=== PATIENT | male | born 1970 | race Caucasian/White ===

== ENCOUNTER → 2017-04-17 | Outpatient (CLI) | payer BC, OTHER ==
--- NOTE | 2017-04-17 11:22 | XR ---
EXAMINATION TYPE: XR hand complete RT DATE OF EXAM: 04/17/2017 COMPARISON: NONE HISTORY: Pain and swelling base of third digit TECHNIQUE: Three-view right hand FINDINGS: Some minimal dorsal soft tissue swelling is at the metacarpal phalangeal joint space.. No a cute fractures are evident. Joint spaces are preserved. IMPRESSION: 1. Suggestion of minimal carpal phalangeal joint space swelling dorsally. 2. No acute osseous abnormality evident. 3. Follow-up exams can be performed 7-10 days from acute trauma for continued pain.
== END | disposition home or self-care (01) ==
LOC: RADXRMAIN 10:47
PROVIDERS: ATTEND Family Medicine
DX: M79.641 Pain in right hand (principal)